=== PATIENT | male | born 1985 | race Caucasian/White ===

== ENCOUNTER 2018-06-13 10:41 | Emergency (ER) | payer OTHER ==
--- NOTE | 2018-06-13 11:54 | UC ---
General HPI - HPI Summary HPI Summary: Patient c/o right foot pain. States 3 days ago, woke up in the morning and was unable to walk on right foot. Came back from [place] the day before. No known trauma. Denied walking a lot or exertional activity. Denied new shoes. Denies any swelling. Stated he had pain like this in the past, not this severe but thought it was due to new shoes. No other joint pain. No fevers. PMHx and meds: Reviewed - History of Current Complaint Chief Complaint: UCLowerExtremity Stated Complaint: ANKLE PAIN Time Seen by Provider: 06/13/18 11:34 Pain Intensity: 7 - Allergy/Home Medications Allergies/Adverse Reactions: Allergies Allergy/AdvReac Type Severity Reaction Status Date / Time No Known Allergies Allergy Verified 06/13/18 11:43 Home Medications: Home Medications NK [No Home Medications Reported] 06/13/18 [History Confirmed 06/13/18] PMH/Surg Hx/FS Hx/Imm Hx - Surgical History Surgical History: None - Social History Alcohol Use: Occasionally Substance Use Type: None Smoking Status (MU): Never Smoked Tobacco Review of Systems All Other Systems Reviewed And Are Negative: Yes Physical Exam Triage Information Reviewed: Yes Appearance: Well-Appearing Vital Signs: Initial Vital Signs Temp 98.2 F 06/13/18 11:37 Pulse 104 06/13/18 11:37 Resp 15 06/13/18 11:37 BP 175/93 06/13/18 11:37 Pulse Ox 97 06/13/18 11:37 Musculoskeletal: Positive: Other: - right lower ext calf edema, posterior tendon /achilles - exquisite tenderness with palpation and ROM. No bony tenderness. Unable to ambulate Course/Dx - Course Course Of Treatment: This is a 33 yr old with right foot pain. Assessment. Xray: Subchondral lucency lateral margin talar dome. Question of a osteochondral defect. U/S doppler: No DVT. Plan. Blood pressure is elevated - likely secondary to pain. Recommend recheck at home and follow up with PCP if it remains elevated. Recommend use of crutches - weight bearing as tolerated. [facility] [phone] - Diagnoses Provider Diagnosis: Ankle pain Discharge - Sign-Out/Discharge Documenting (check all that apply): Patient Departure All imaging exams completed and their final reports reviewed: Yes - Discharge Plan Condition: Good Disposition: HOME Referrals: Kobe De Leon MD [Primary Care Provider] - - Billing Disposition and Condition Condition: GOOD Disposition: Home
== END 2018-06-13 13:57 | disposition home or self-care (01) ==
LOC: UCEAST 10:41
DX: M25.571 Pain in right ankle and joints of right foot (principal)
CPT/HCPCS: 99201; G0463